=== PATIENT | female | born 1990 | race Caucasian/White ===

== ENCOUNTER 2020-01-12 06:36 | Inpatient (IN) | payer OTHER, SELFPAY ==
[2020-01-12] VITALS (126 sets, daily range): BP systolic 81–147; BP diastolic 32–121; PULSE 61–179; RESP 10; TEMP 36.9–38.2; O2SAT 94–100; BMI 34.0
[2020-01-12 07:23] LABS: Basophils Absolute Auto 0.1 K/mm3 (0.0-0.1); Basophils Percent Auto 0.6 % (0.2-1.2); Eosinophils Absolute Auto 0.3 K/mm3 (0-0.3); Eosinophils Percent Auto 2.3 % (0-4.4); Hematocrit 35.8 % (37.0-47.0); Hemoglobin 11.7 g/dL (12.0-15.0); Immature Granulocyte Absolute 0.14 K/mm3 (0.00-0.031); Immature Granulocyte Percent A 1.2 % (0-0.5); Lymphocytes Absolute Auto 2.91 K/mm3 (0.9-3.2); Lymphocytes Percent Auto 25.9 % (18.3-44.2); Mean Corpuscular HGB Conc 32.7 g/dl (32-36); Mean Corpuscular Hemoglobin 26.9 pg (26-34); Mean Corpuscular Volume 82.3 fl (80-100); Monocytes Absolute Auto 0.8 K/mm3 (0.1-0.6); Monocytes Percent Auto 6.8 % (2.6-8.5); Neutrophils Absolute Auto 7.1 K/mm3 (1.3-6.7); Neutrophils Percent Auto 63.2 % (45.5-73.1); Platelet Count Result 253 k/mm3 (150-375); Red Blood Count 4.35 M/mm3 (4.2-5.4); Red Cell Distribution Width 15.2 % (11.5-14.5); White Blood Count 11.2 K/mm3 (4.5-10.0)
[2020-01-12 07:33] LABS: Glucose Point of Care 101 (65-105)
--- NOTE | 2020-01-12 07:47 | LDADM ---
This patient, Josefa Witt, was admitted to Labor/Delivery/Recovery 104 on 01/12/20 at 06:36. Plans for labor, pain management and were discussed with patient. Patient/family oriented to hospital policies and general routines including ID bracelet, bed and alarms, visiting hours, pain management, procedures, bathroom and other care routines, personal items, smoking policy, room service/diet and guest tray routines, security routines, and visiting hours. Patient/Family are encouraged to report perceived risks to care and to ask questions if they do not understand what they are told or what they should do. See OBIX for further documentation.
[2020-01-12] MEDS: CALCIUM CARBONATE (TUMS) 500 MG (200 MG ELEMENTAL) 400 MG PO (08:16)
[2020-01-12] MEDS: LACTATED RINGERS 1,000 ML 125 ML IV CONT ×3 (08:17→18:37)
[2020-01-12] MEDS: OXYTOCIN 30 UNITS/NS 500 ML 30 UNITS/500 ML BAG IV CONT (08:18)
--- NOTE | 2020-01-12 08:49 | WPDOBADMIT ---
Obstetrics - Admit Note Admission Note: 29 y/o @ 39 weeks.GDM diet controlled. Elective induction for LGA. EFW 7-15 2 weeks ago. record reviewed. No pertinent additions to the history and/or any subsequent changes in the physical findings that are not consistent with the expected course of the were found. Additions to the history and/or subsequent changes in the physical findings follow. None.
[2020-01-12 11:56] LABS: Glucose Point of Care 74 (65-105)
--- NOTE | 2020-01-12 13:51 | WPDANESEPP ---
Anes - Eval Pre Procedure Procedure: labor epidural Date/Time: 01/12/20 13:51 Preop Diagnosis: labor pain Pre Op Diagnosis: IOL Patient Data Age: 29 Gender: F Height: 5 ft 2 in Weight: 84.5 kg Last Vital Signs Pulse 63 01/12/20 11:46 BP 124/81 01/12/20 11:46 Allergies Allergy/AdvReac Type Severity Reaction Status Date / Time No Known Allergies Allergy Unverified 04/24/17 15:20 Laboratory Tests 01/12/20 01/12/20 01/12/20 07:16 07:16 07:16 WBC 11.2 K/mm3 H K/mm3 (4.5-10.0) RBC 4.35 M/mm3 M/mm3 (4.2-5.4) Hgb 11.7 g/dL L g/dL (12.0-15.0) Hct 35.8 % L % (37.0-47.0) MCV 82.3 fl fl (80-100) MCH 26.9 pg pg (26-34) MCHC 32.7 g/dl g/dl (32-36) RDW 15.2 % H % (11.5-14.5) Plt Count 253 k/mm3 k/mm3 (150-375) MPV 11.0 fl H fl (7.4-10.4) Immature Gran % (Auto) 1.2 % H % (0-0.5) Neut % (Auto) 63.2 % % (45.5-73.1) Lymph % (Auto) 25.9 % % (18.3-44.2) [place] % (Auto) 6.8 % % (2.6-8.5) Eos % (Auto) 2.3 % % (0-4.4) Baso % (Auto) 0.6 % % (0.2-1.2) Lymph # (Auto) 2.91 K/mm3 K/mm3 (0.9-3.2) [place] # (Auto) 0.8 K/mm3 H K/mm3 (0.1-0.6) Eos # (Auto) 0.3 K/mm3 K/mm3 (0-0.3) Baso # (Auto) 0.1 K/mm3 K/mm3 (0.0-0.1) Abs Immat Gran (auto) 0.14 K/mm3 H K/mm3 (0.00-0.031) Absolute Neuts (auto) 7.1 K/mm3 H K/mm3 (1.3-6.7) Absolute Nucleated RBC 0.0 K/mm3 K/mm3 (0.0-0.012) Nucleated RBC % 0.0 % % (0.0-0.2) POC Capillary Glucose RPR Pending Blood Type O Positive Antibody Screen Negative 01/12/20 01/12/20 07:26 11:53 WBC RBC Hgb Hct MCV MCH MCHC RDW Plt Count MPV Immature Gran % (Auto) Neut % (Auto) Lymph % (Auto) [place] % (Auto) Eos % (Auto) Baso % (Auto) Lymph # (Auto) [place] # (Auto) Eos # (Auto) Baso # (Auto) Abs Immat Gran (auto) Absolute Neuts (auto) Absolute Nucleated RBC Nucleated RBC % POC Capillary Glucose 101 mg/dl mg/dl 74 mg/dl mg/dl (65-105) (65-105) RPR Blood Type Antibody Screen Patient hx anesthesia problems: none Family hx anesthesia problems: none [facility] Family History Family History (Updated 01/12/20 @ 07:48 by Evelyne Nails RN) Other Unknown family medical history Social History Social History Smoking status: Former smoker Tobacco type: cigarettes Second hand tobacco smoke exposure: No Substance use: former Spiritual care concerns: No Exam Day of Procedure 01/12/20 13:51
[2020-01-12 16:02] LABS: Glucose Point of Care 77 (65-105)
[2020-01-12 18:40] LABS: Glucose Point of Care 69 (65-105)
--- NOTE | 2020-01-12 19:12 | P.PNOB_ITS ---
OB - PN: Subj Subjective Date/time seen: 01/12/20 19:12 This patient is a 29-year-old multiparous female. She is term and has been induced today. She has moved slowly through the 1st stage of labor. She is known to have a larger baby. The baby's estimated weight was 7 lb 15 oz 2 weeks ago. She is of small body habitus. We had a lengthy discussion regarding the baby's estimated weight. Palpate her abdomen I estimated at 3800 g . There is significant amount of room in the vagina and pelvis on digital cervical exam. The head is very high. The cervix is almost completely dilated with a rim of cervix posteriorly around the back of the head. I do not suspect a malposition of the head. We discussed shoulder dystocia with the patient. In great detail and I discussed possibility of injury. Discussed brachial plexus injury and permanent paralysis with the patient. We agreed to continue to observe and expectant management her labor. More signs cephalopelvic disproportion will be recognized and make appropriate recommendations. OB - PN: Obj Data Labs CBC & Chem 7: 01/12/20 07:16 Labs: Laboratory Results - last 24 hr 01/12/20 01/12/20 01/12/20 07:16 07:16 07:26 WBC 11.2 H RBC 4.35 Hgb 11.7 L Hct 35.8 L MCV 82.3 MCH 26.9 MCHC 32.7 RDW 15.2 H Plt Count 253 MPV 11.0 H Immature Gran % (Auto) 1.2 H Neut % (Auto) 63.2 Lymph % (Auto) 25.9 [place] % (Auto) 6.8 Eos % (Auto) 2.3 Baso % (Auto) 0.6 Lymph # (Auto) 2.91 [place] # (Auto) 0.8 H Eos # (Auto) 0.3 Baso # (Auto) 0.1 Abs Immat Gran (auto) 0.14 H Absolute Neuts (auto) 7.1 H Absolute Nucleated RBC 0.0 Nucleated RBC % 0.0 POC Capillary Glucose 101 Blood Type O Positive Antibody Screen Negative 01/12/20 01/12/20 01/12/20 11:53 15:58 18:36 WBC RBC Hgb Hct MCV MCH MCHC RDW Plt Count MPV Immature Gran % (Auto) Neut % (Auto) Lymph % (Auto) [place] % (Auto) Eos % (Auto) Baso % (Auto) Lymph # (Auto) [place] # (Auto) Eos # (Auto) Baso # (Auto) Abs Immat Gran (auto) Absolute Neuts (auto) Absolute Nucleated RBC Nucleated RBC % POC Capillary Glucose 74 77 69 Blood Type Antibody Screen OB - PN A/P Time Spent With Patient Time: Total time spent is greater than 50% in coordination of care (as documented) at patient's floor/unit and/or counseling patient:
[2020-01-12 20:21] LABS: Glucose Point of Care 72 (65-105)
--- NOTE | 2020-01-12 22:32 | P.PNOB_ITS ---
OB - PN: Subj Subjective Date/time seen: 01/12/20 22:32This patient is a 29-year-old has labored for many hours. She became complete and began pushing and half ago. She has not been able to move the baby down. We have agreed to proceed with delivery for failure to descend. There is reassuring status. OB - PN: Obj Data Labs CBC & Chem 7: 01/12/20 07:16 Labs: Laboratory Results - last 24 hr 01/12/20 01/12/20 01/12/20 07:16 07:16 07:26 WBC 11.2 H RBC 4.35 Hgb 11.7 L Hct 35.8 L MCV 82.3 MCH 26.9 MCHC 32.7 RDW 15.2 H Plt Count 253 MPV 11.0 H Immature Gran % (Auto) 1.2 H Neut % (Auto) 63.2 Lymph % (Auto) 25.9 [place] % (Auto) 6.8 Eos % (Auto) 2.3 Baso % (Auto) 0.6 Lymph # (Auto) 2.91 [place] # (Auto) 0.8 H Eos # (Auto) 0.3 Baso # (Auto) 0.1 Abs Immat Gran (auto) 0.14 H Absolute Neuts (auto) 7.1 H Absolute Nucleated RBC 0.0 Nucleated RBC % 0.0 POC Capillary Glucose 101 Blood Type O Positive Antibody Screen Negative 01/12/20 01/12/20 01/12/20 11:53 15:58 18:36 WBC RBC Hgb Hct MCV MCH MCHC RDW Plt Count MPV Immature Gran % (Auto) Neut % (Auto) Lymph % (Auto) [place] % (Auto) Eos % (Auto) Baso % (Auto) Lymph # (Auto) [place] # (Auto) Eos # (Auto) Baso # (Auto) Abs Immat Gran (auto) Absolute Neuts (auto) Absolute Nucleated RBC Nucleated RBC % POC Capillary Glucose 74 77 69 Blood Type Antibody Screen 01/12/20 19:58 WBC RBC Hgb Hct MCV MCH MCHC RDW Plt Count MPV Immature Gran % (Auto) Neut % (Auto) Lymph % (Auto) [place] % (Auto) Eos % (Auto) Baso % (Auto) Lymph # (Auto) [place] # (Auto) Eos # (Auto) Baso # (Auto) Abs Immat Gran (auto) Absolute Neuts (auto) Absolute Nucleated RBC Nucleated RBC % POC Capillary Glucose 72 Blood Type Antibody Screen OB - PN A/P Time Spent With Patient Time: Total time spent is greater than 50% in coordination of care (as documented) at patient's floor/unit and/or counseling patient:
[2020-01-12] MEDS: ceFAZolin 2 GM/D5W 50 ML 2 GM/50 ML BAG IVPB (22:54)
--- NOTE | 2020-01-12 23:42 | PM.PROC ---
Procedure Note - Detailed Date of procedure: 01/12/20 Pre-op diagnosis: IOL Term gestation, Failure to descend Post-op diagnosis: same ( malposition of the head) Procedure performed: low-transverse delivery Description of procedure: The patient was taken the operating room. She was prepped and draped in the dorsal supine position with leftward tilt after induction of spinal anesthetic. When anesthesia was found to be adequate a low-transverse skin incision was made and carried down to the level the fascia with the knife. The fascial incision was made at the midline with a scalpel. The fascial incision was extended laterally with Gao scissors. The fascia was tented upward superior and inferior with Koffi clamps. The rectus muscles were dissected off bluntly. The rectus muscles at the midline. The preperitoneal fat was dissected bluntly at the superior aspect of the separate the rectus muscles. The peritoneal cavity was entered bluntly in the same area. The peritoneal incision was extended superior and inferior with good visualization of bladder. Bladder blade was inserted. A low-transverse incision was made on the uterus with the scalpel. It was carried down the level of the amniotic cavity with a knife. The amniotic cavity bluntly. The uterine incision was made laterally with blunt traction. The infant was delivered. The cord was clamped and cut. The infant was handed off to waiting pediatric staff. Cord bloods were obtained. The placenta was removed manually. The uterus was exteriorized. Uterus cleared of all clots and debris. Uterus closed in 0 Vicryl in a running locked fashion. An imbricating layer of 0 Vicryl was also placed on the to bolster the closure. The uterus was returned to the abdomen. The gutters were cleared of all clots and debris. The fascia was closed 0 Vicryl in a running fashion. Subcutaneous tissue was irrigated and bleeding areas were cauterized. The skin was closed with subcuticular absorbable yany. The incision was covered with derma aguirre. The patient tolerated the procedure well. She was taken recovery room stable condition. Sponge, lap, needle counts were correct x2. Anesthesia: spinal Surgeon: Tony Loya MD Estimated blood loss (mL): 750 Drains: No Packing: No Pathology: yes Complications: No immediate complications Condition: stable Disposition: floor Findings: Normal maternal anatomy. Average size infant with normal Apgars. No gross evidence of abruption.
[2020-01-12] MEDS: miSOPROStol 200 MCG TABLET 800 MCG RECTAL (23:57)
[2020-01-13] VITALS (38 sets, daily range): BP systolic 77–141; BP diastolic 28–80; PULSE 67–135; RESP 12–19; TEMP 36.6–37.7; O2SAT 92–100
[2020-01-13] MEDS: OXYTOCIN 30 UNITS/NS 500 ML 30 UNITS/500 ML BAG 125 UNITS IV CONT (00:10)
[2020-01-13] MEDS: KETOROLAC 30 MG/ML VIAL (*BKC) IV PUSH (02:14)
--- NOTE | 2020-01-13 02:19 | OBPPTRN ---
Patient transferred to post room #290 via stretcher. Support person present. Oriented to unit, room, information board, rooming in, admission packet and security measures. Patient verbalizes understanding.
[2020-01-13] MEDS: DEXTROSE 5%/0.45% SOD CHL 1,000 ML 125 ML IV CONT (04:33)
[2020-01-13 06:07] LABS: Basophils Absolute Auto 0.1 K/mm3 (0.0-0.1); Basophils Percent Auto 0.3 % (0.2-1.2); Eosinophils Percent Auto 0.1 % (0-4.4); Hematocrit 29.5 % (37.0-47.0); Hemoglobin 9.5 g/dL (12.0-15.0); Immature Granulocyte Absolute 0.09 K/mm3 (0.00-0.031); Immature Granulocyte Percent A 0.5 % (0-0.5); Lymphocytes Absolute Auto 1.89 K/mm3 (0.9-3.2); Lymphocytes Percent Auto 10.3 % (18.3-44.2); Mean Corpuscular HGB Conc 32.2 g/dl (32-36); Mean Corpuscular Hemoglobin 27.1 pg (26-34); Mean Platelet Volume 11.6 fl (7.4-10.4); Monocytes Absolute Auto 1.3 K/mm3 (0.1-0.6); Monocytes Percent Auto 7.1 % (2.6-8.5); Neutrophils Percent Auto 81.7 % (45.5-73.1); Platelet Count Result 233 k/mm3 (150-375); Red Blood Count 3.51 M/mm3 (4.2-5.4); Red Cell Distribution Width 15.5 % (11.5-14.5); White Blood Count 18.3 K/mm3 (4.5-10.0)
--- NOTE | 2020-01-13 08:10 | P.PNOB_ITS ---
OB - PN: Subj Subjective Date/time seen: 01/13/20 08:10 Patient comments: no complaints, pain well controlled, tolerating diet and flatus present OB - PN: Obj Data Labs CBC & Chem 7: 01/13/20 04:23 Labs: Laboratory Results - last 24 hr 01/12/20 01/12/20 01/12/20 07:16 11:53 15:58 WBC RBC Hgb Hct MCV MCH MCHC RDW Plt Count MPV Immature Gran % (Auto) Neut % (Auto) Lymph % (Auto) [place] % (Auto) Eos % (Auto) Baso % (Auto) Lymph # (Auto) [place] # (Auto) Eos # (Auto) Baso # (Auto) Abs Immat Gran (auto) Absolute Neuts (auto) Absolute Nucleated RBC Nucleated RBC % POC Capillary Glucose 74 77 Blood Type O Positive Antibody Screen Negative 01/12/20 01/12/20 01/13/20 18:36 19:58 04:23 WBC 18.3 H RBC 3.51 L Hgb 9.5 L Hct 29.5 L MCV 84.0 MCH 27.1 MCHC 32.2 RDW 15.5 H Plt Count 233 MPV 11.6 H Immature Gran % (Auto) 0.5 Neut % (Auto) 81.7 H Lymph % (Auto) 10.3 L [place] % (Auto) 7.1 Eos % (Auto) 0.1 Baso % (Auto) 0.3 Lymph # (Auto) 1.89 [place] # (Auto) 1.3 H Eos # (Auto) 0.0 Baso # (Auto) 0.1 Abs Immat Gran (auto) 0.09 H Absolute Neuts (auto) 15.0 H Absolute Nucleated RBC 0.0 Nucleated RBC % 0.0 POC Capillary Glucose 69 72 Blood Type Antibody Screen OB - PN A/P Plan day: 1 Comments: Post Op LTCS - no problems, routine recovery Time Spent With Patient Time: Total time spent is greater than 50% in coordination of care (as documented) at patient's floor/unit and/or counseling patient: Exam Const: General: cooperative, healthy appearing, comfortable and no acute distress Resp: Auscultation: no crackles, no rales, no rhonchi and no wheezes Cardio: Rhythm: regular rhythm Heart sounds: no click and no murmurs GI: Inspection: non-distended Auscultation: normal bowel sounds Extrem: General: normal to inspection, no pedal edema and no calf tenderness
[2020-01-13] MEDS: DOCUSATE SODIUM 100 MG CAPSULE PO ×2 (09:29→19:02)
[2020-01-13] MEDS: LORATADINE 10 MG TABLET PO (09:29)
--- NOTE | 2020-01-13 10:35 | PC.NURSE ---
Consulted with patient, mother is attempting to breast. Mother reports has used the nipple shield during the night. had difficulties latching and maintaining latch. Infant has been supplemented due to low blood glucose. Discussed initiating pumping to stimulate milk supply with shield use. Discussed nipple shield precautions and possible complications. Instructions given on application and cleaning of shield. Patient able to return demonstration on proper application of shield. Discussed the need for regular pumping if infant continues to nurse with the shield. Patient verbalizes understanding. Reviewed feeding cues, frequencies, duration of feedings, feeding elimination flow sheet, and signs of adequate intake. Demonstrated stimulation techniques to wake for feeding. Assisted with to breast without nipple shield. Reviewed positioning/alignment in cross cradle, holding breast in U hold and guided asymmetrical latch on. was able to latch correctly. Infant nursed eagerly with good bursts of rhythmic draws and occasional swallowing noted. Reviewed signs of a correct latch, effective nursing and suck swallow ratio. Infant was able to maintain latch without discomfort to mother. Nipple care reviewed. Suggested mother stimulate while feeding to keep infant awake and nursing effectively for increased intake and to assist with maintaining deep latch. Demonstrated how to adjust latch more deeply while feeding. Instructed mother to call out for RN assistance if she is unable to latch infant for feeding or she has discomfort with nursing. Instructed feeding should be initiated three hours from start of last feeding or if feeding cues are noted before. Mother voiced understanding of information shared.
--- NOTE | 2020-01-13 10:47 | WPDANLDPN2 ---
Anes-Prog Note L&D Date/Time: 01/13/20 10:47 Comfortable throughout: section Neuraxial method: spinal Epidural/Spinal procedure site: clean & non-tender Neuro status: Neuro function grossly intact. Cardiovascular status: normal Respiratory status: normal Airway patency: baseline Mental status: baseline Post-Op hydration status: normal Vital Signs: Last Vital Signs Temp 36.9 C 01/13/20 06:45 Pulse 91 01/13/20 06:45 Resp 16 01/13/20 06:45 BP 95/54 L 01/13/20 06:45 Pulse Ox 97 01/13/20 06:45 Pain score (VAS): 05/07 I/O: Intake & Output 01/12/20 01/13/20 01/13/20 23:59 07:59 15:59 Intake Total 2000 500 Output Total 735 650 Balance 1265 -150 Post-procedural complaints: none Patient feedback: Patient satisfied with anesthetic care.
--- NOTE | 2020-01-13 10:47 | WPDANLDNPN2 ---
Anes-Prog Note L&D-Neuraxial Date/Time: 01/13/20 10:47 Neuraxial medications: intrathecal PF morphine Opiod-related complaints: none Patient feedback: Patient satisfied with post-operative pain management.
[2020-01-13 11:14] LABS: Rapid Plasma Reagin Non-Reactive (NonReactive)
[2020-01-13] MEDS: POLYSACCHARIDE IRON COMPLEX 150 MG CAPSULE PO (14:45)
[2020-01-13] MEDS: MULTIVIT/MIN/PREN/FOL AC/IRON TABLET 1 TAB PO (14:45)
[2020-01-13] MEDS: HYDROcodone/acetaminophen (*CRX) 5-325 MG TABLET 1 TAB PO ×2 (14:46→23:51)
[2020-01-13] MEDS: IBUPROFEN 600 MG TABLET PO ×2 (14:46→23:52)
--- NOTE | 2020-01-13 15:50 | PC.NURSE ---
Breast pump provided due to nipple shield use. Instructions given on breast pump care and usage, pumping schedule, nipple care, and collection and storage of breast milk. Encouraged [id number], breast massage and manual expression to stimulate supply. Assessed patient for correct flange size, placement and draw. Patient verbalizes and demonstrates understanding of instructions.
[2020-01-14] MEDS: POLYSACCHARIDE IRON COMPLEX 150 MG CAPSULE PO ×2 (07:15→15:04)
[2020-01-14] MEDS: DOCUSATE SODIUM 100 MG CAPSULE PO ×2 (07:15→15:04)
[2020-01-14] MEDS: HYDROcodone/acetaminophen (*CRX) 5-325 MG TABLET 1 TAB PO ×3 (07:15→22:31)
[2020-01-14] MEDS: MULTIVIT/MIN/PREN/FOL AC/IRON TABLET 1 TAB PO (07:15)
[2020-01-14] MEDS: IBUPROFEN 600 MG TABLET PO ×3 (07:16→22:32)
--- NOTE | 2020-01-14 08:12 | PM.OBPNVD ---
OB - PN: Subj Subjective Date/time seen: 01/14/20 08:12 Patient comments: no complaints, pain well controlled, incisional pain, tolerating diet and flatus present OB - PN: Obj Data Labs CBC & Chem 7: 01/13/20 04:23 Labs: Laboratory Results - last 24 hr 01/12/20 07:16 RPR Non-reactive OB - PN A/P Plan day: 2 Plan: routine care Comments: POD#2 LTCS - no problems, to d/c Time Spent With Patient Time: Total time spent is greater than 50% in coordination of care (as documented) at patient's floor/unit and/or counseling patient: Exam Const: General: comfortable, no acute distress and alert Resp: Effort & Inspection: normal respiratory effort Auscultation: no crackles, no rales and no rhonchi Cardio: Rate: regular rate Heart sounds: no click, no murmurs and no rubs GI: Inspection: non-distended GI Palp: No Tenderness to palpation present (GI) Auscultation: normal bowel sounds Other: Incision - CDI Extrem: General: normal to inspection, no pedal edema and no calf tenderness
--- NOTE | 2020-01-14 08:14 | PM.OBDSVD ---
DS: Admitting Diagnosis Admitting Diagnosis Admitting Diagnosis: IOL DS: Discharge Diagnosis Discharge Diagnosis (1) delivery delivered: Code(s): O82 - Encounter for delivery without indication Status: Acute OB - DS: Summary OB Procedures : None OB Procedures Intrapartum: OB Procedures: : None Peripartum Data Delivery Method: Section Procedures: Procedures Operation Date: 01/12/20 23:00 Actual Procedures Side Surgeon p Section Not Applicable Tony Loya MD Status at Discharge Functional status at discharge: independent ambulation Time Spent with Patient Time attestation: Total time spent providing and/or coordinating discharge services: DS: Data Data Completed and Pending Pending studies at discharge: Pending at discharge 01/13/20 00:27 Surgical [PTH] Routine Labs on day of discharge: Labs from last 24 hours 01/12/20 07:16 RPR Non-reactive Discharge Plan Discharge Discharging Clinician: Tony Loya Patient Disposition: Home, Self-Care Activity: pelvic rest Diet: regular Patient Instructions: Antibiotic Form Stand Alone Forms: General Discharge Information Follow-up/Referrals: Tony Loya MD [Physician] - Discharge Medications: New hydrocodone-acetaminophen 5-325 mg tablet 1 - 2 tablet PO Q4H PRN (Reason: pain) Qty: 25 RF: 0 Date of admission: 01/12/20 06:36 Primary Care Provider: Sunil Fuller Admitting Provider: Tony Loya Attending physician on admission: Tony Loya
[2020-01-14 08:30] VITALS: BP 102/68; PULSE 80; RESP 16; TEMP 36.8; O2SAT 98
--- NOTE | 2020-01-14 11:00 | PC.NURSE ---
Consult with pt., mother reports infant blood glucose has been WNL and BS are not longer needed. Mother has been bottle feeding only and states infant is now fussy with latching and does not want to maintain latch. Discussed feeding status, reviewed infant is now accustom to large amounts per feeding with an instant flow by the bottle. Suggested mother offer a few mls of the bottle then transition infant to breast for feeding, giving additional bottle throughout the feeding as needed. Then supplement when infant is done at the breast. Mother can breast and bottle feed during the feeding until infant is satisfied. Reviewed may want supplementation until her milk is in to the level is used to. depending on the volume infant is taking per feeding infant may want to feed every 4 hours. Advised to pace bottle and to stop once infant is satisfied. Reviewed infant feeding cues, frequencies, duration of feedings, feeding elimination flow sheet, and signs of adequate intake. Mother is feeding as required and waking to feed if needed. is currently meeting outcomes for weight, output, jaundice and feeding frequencies. Reviewed transition to breast milk, signs of adequate intake, and engorgement/relief. Instructed to call ICP if intake/output less than required. Reviewed regular medications mother is taking. Information provided per Josette. Reviewed community resources on the [facility] website and in the Mom/Baby guide. Information on outpatient services provided. Mother has no further questions at this time. Requested mother call out next feeding for assist with feeding.
[2020-01-14] MEDS: HYDROcodone/acetaminophen (*CRX) 10-325 MG TABLET 1 TAB PO ×2 (11:13→19:01)
[2020-01-14 19:00] VITALS: BP 101/57; PULSE 67; RESP 16; TEMP 36.3; O2SAT 99
[2020-01-15] MEDS: IBUPROFEN 600 MG TABLET PO ×3 (05:59→22:36)
[2020-01-15] MEDS: HYDROcodone/acetaminophen (*CRX) 10-325 MG TABLET 1 TAB PO ×4 (05:59→22:37)
--- NOTE | 2020-01-15 08:30 | PC.NURSE ---
PT introductions made and plan of care discussed per post op csection, pain management, breast feeding. daily care activities. PT extremely agitated and tearful due to the inability of to be discharged. PT verbalized being very upset. PT encouraged to talk and have any questions answered. Offered for pt to be d/c and in a no care position so as to get out and walk and or visit her family. PT declined to be d/c to no care position.
[2020-01-15 09:30] VITALS: BP 103/57; PULSE 82; RESP 20; TEMP 36.4; O2SAT 100
--- NOTE | 2020-01-15 09:38 | P.PNOB_ITS ---
OB - PN: Subj Subjective Date/time seen: 01/15/20 09:38 Patient comments: no complaints, pain well controlled, tolerating diet, flatus present and other (Lochia less than menses. Ambulating and voiding without problems) [place] baby status: doing well OB - PN: Obj Data Labs CBC & Chem 7: 01/13/20 04:23 OB - PN A/P Plan day: 3 (s/p section, doing well and ready to be discharged home) Plan: routine care and other Comments: [employer] is not releasing her baby today, awaiting blood culture done this morning due to increased respiratory rate. Plan discharge tomorrow Time Spent With Patient Time: Total time spent is greater than 50% in coordination of care (as documented) at patient's floor/unit and/or counseling patient: Time with patient: less than 15 minutes Exam Const: General: no acute distress Resp: Auscultation: clear to auscultation bilaterally Cardio: Rate: regular rate Rhythm: regular rhythm GI: Inspection: non-distended, incision (Intact without erythema, drainage, or induration) and other (Fundus firm and nontender below umbilicus) GI Palp: Yes abdominal tenderness (appropriate) and Yes Soft to palpation Extrem: General: no edema
[2020-01-15] MEDS: SIMETHICONE 80 MG TAB.CHEW PO ×2 (09:40→15:46)
[2020-01-15] MEDS: DOCUSATE SODIUM 100 MG CAPSULE PO ×2 (09:40→15:47)
[2020-01-15] MEDS: POLYSACCHARIDE IRON COMPLEX 150 MG CAPSULE PO ×2 (09:41→15:47)
[2020-01-15] MEDS: MULTIVIT/MIN/PREN/FOL AC/IRON TABLET 1 TAB PO (09:41)
[2020-01-15] MEDS: HYDROcodone/acetaminophen (*CRX) 5-325 MG TABLET 1 TAB PO (15:46)
--- NOTE | 2020-01-15 18:23 | PC.NURSE ---
Patient viewed the discharge video Mother & Baby Care, The First Two Weeks . Patient was given the opportunity and encouraged to ask questions. Patient verbalized understanding of information shared and has been given the mother/baby guide for home reference.
[2020-01-15 20:35] VITALS: BP 110/66; PULSE 85; RESP 13; TEMP 36.7; O2SAT 98
[2020-01-16] MEDS: HYDROcodone/acetaminophen (*CRX) 10-325 MG TABLET 1 TAB PO ×2 (04:17→08:58)
[2020-01-16] MEDS: IBUPROFEN 600 MG TABLET PO (04:17)
--- NOTE | 2020-01-16 07:15 | PC.NURSE ---
PT introductions made and plan of care discussed per post op csection, pain management, breast feeding, daily care activities and pending discharge to home. PT verbalized understanding of such care.
[2020-01-16 08:56] VITALS: BP 114/72; PULSE 82; RESP 16; TEMP 36.6; O2SAT 98
[2020-01-16] MEDS: DOCUSATE SODIUM 100 MG CAPSULE PO (08:56)
[2020-01-16] MEDS: SIMETHICONE 80 MG TAB.CHEW PO (08:56)
[2020-01-16] MEDS: POLYSACCHARIDE IRON COMPLEX 150 MG CAPSULE PO (08:57)
[2020-01-16] MEDS: MULTIVIT/MIN/PREN/FOL AC/IRON TABLET 1 TAB PO (08:57)
--- NOTE | 2020-01-16 09:00 | PC.NURSE ---
PT receive discharge instructions per protocol and verbalized understanding of such instructions.
--- NOTE | 2020-01-16 09:32 | PM.OBPNVD ---
OB - PN: Subj Subjective Date/time seen: 01/16/20 09:32 Patient comments: no complaints, pain well controlled, tolerating diet, flatus present and other (Lochia less than menses. Ambulating and voiding without problems) baby status: doing well OB - PN: Obj Data Labs CBC & Chem 7: 01/13/20 04:23 OB - PN A/P Plan day: 4 (s/p section, doing well and ready to be discharged home) Plan: routine care, discharge home and other (Follow up in office in 1 week) Time Spent With Patient Time: Total time spent is greater than 50% in coordination of care (as documented) at patient's floor/unit and/or counseling patient: Time with patient: less than 15 minutes Exam Const: General: no acute distress Resp: Auscultation: clear to auscultation bilaterally Cardio: Rate: regular rate Rhythm: regular rhythm GI: Inspection: non-distended, incision (Intact without erythema, drainage, or induration) and other (Fundus firm and nontender below umbilicus) GI Palp: Yes abdominal tenderness (appropriate) and Yes Soft to palpation Extrem: General: no edema
--- NOTE | 2020-01-16 09:38 | PC.NURSE ---
PT discharged to home ambulatory accompanied by spouse and and taken to waiting car. Follow up appts confirmed
[2020-01-18 11:53] VITALS: BP 118/73; PULSE 73; RESP 16; TEMP 37.2; O2SAT 98
--- NOTE | 2020-02-13 20:46 | PM.IMHP ---
H&P: HPI History of Present Illness Date/Time: 02/13/20 20:46 Chief complaint: IOL Narrative: Josefa Witt is a 29 year old female This patient is a 29-year-old has labored for many hours. She became complete and began pushing and half ago. She has not been able to move the baby down. We have agreed to proceed with delivery for failure to descend. There is reassuring status. Review of Systems Constitutional: Constitutional: Reports no additional constitutional complaints, Denies fatigue, Denies headache(s), Denies lethargy and Denies weakness Eyes: Eyes: Reports no additional eye complaints, Denies blurry vision and Denies photophobia ENT: Reports as per HPI, Denies headache(s) and Denies neck pain Cardiovascular: Cardiovascular: Denies chest pain, Denies diaphoresis, Denies leg edema, Denies palpitations and Denies dyspnea Respiratory: Respiratory: Denies hemoptysis, Denies dyspnea and Denies wheezing Gastrointestinal: Gastrointestinal: Denies abdominal pain, Denies melena, Denies bloating, Denies hematochezia, Denies nausea and Denies vomiting Genitourinary: Genitourinary: Reports no additional female genitourinary complaints Musculoskeletal: Musculoskeletal: Denies joint swelling, Denies neck pain, Denies numbness and Denies stiffness Neurologic: Denies Abnormal speech present, Denies confusion, Denies headache(s), Denies numbness and Denies weakness Psychiatric: Psychiatric: Denies anxiety, Denies confusion, Denies depression, Denies homicidal ideation and Denies suicidal ideation Endocrine: Endocrine: Denies fatigue and Denies palpitations Allergic/Immunologic: Allergic/Immunologic: Denies wheezing [facility] Family History Family History (Updated 01/12/20 @ 07:48 by Evelyne Nails RN) Other Unknown family medical history Social History Social History Smoking status: Former smoker Tobacco type: cigarettes Second hand tobacco smoke exposure: No Substance use: former Spiritual care concerns: No Meds Home Medications and Allergies Home Medications Medication Instructions Recorded Confirmed Type hydrocodone-acetaminophen 1 - 2 tablet PO Q4H PRN #25 tablet 01/14/20 Rx Allergies Allergy/AdvReac Type Severity Reaction Status Date / Time No Known Allergies Allergy Unverified 04/24/17 15:20 Exam Const: General: healthy appearing, comfortable and no acute distress; No confusion Orientation/consciousness: No confusion Eyes: Direct Ophthalmoscopy: No photophobia Resp: Auscultation: clear to auscultation bilaterally, no rales, no rhonchi and no wheezes Cardio: Rate: regular rate Heart sounds: no click, no murmurs and no rubs GI: Inspection: non-distended GI Palp: No abdominal tenderness Auscultation: normal bowel sounds Neuro: General: No confusion Speech: No Abnormal speech present Extrem: General: normal to inspection, no pedal edema and no calf tenderness Assessment and Plan Assessment and plan (1) Failure of descent in labor, delivered, current hospitalization: Code(s): O62.2 - Other uterine inertia Status: Acute Assessment and Plan: This patient is a 29-year-old has labored for many hours. She became complete and began pushing and half ago. She has not been able to move the baby down. We have agreed to proceed with delivery for failure to descend. There is reassuring status.
--- NOTE | 2020-03-06 21:19 | PM.OBDSVD ---
DS: Admitting Diagnosis Admitting Diagnosis Admitting Diagnosis: IOL DS: Discharge Diagnosis Discharge Diagnosis (1) delivery delivered: Code(s): O82 - Encounter for delivery without indication Status: Acute OB - DS: Summary OB Procedures : None OB Procedures Intrapartum: OB Procedures: : None Peripartum Data Procedures: Procedures Operation Date: 01/12/20 23:00 Actual Procedures Side Surgeon p Section Not Applicable Tony Loya MD Time Spent with Patient Time attestation: Total time spent providing and/or coordinating discharge services: DS: Data Data Completed and Pending Completed studies during hospitalization: Pending at discharge 01/13/20 00:27 Surgical [PTH] Routine Discharge Plan Discharge Consulting providers: Aleshia Krueger Discharging Clinician: Tony Loya Patient Disposition: Home, Self-Care Activity: pelvic rest Diet: regular Discharge Instructions: Education: Mom and Baby Guide Given to: Mother Follow-Up: Call your delivering provider's office for an appointment to be seen in: 1 Week Mom and baby should come to the [facility] for the follow-up appointment. Appointment Date/Time: January 18, 2020 at 11:00 am What to expect at your follow-up visit: Blood Pressure Check Call [phone] if you are unable to keep your appointment time. BREAST CARE: * Wear a snug supportive bra. * For engorgement discomfort: Breast Feeding: * Apply warm moist washcloths * Express milk as needed to relieve engorgement * Wear loose clothing Bottle Feeding: * May apply ice packs * For sore nipples: * Identify correct latch-on * Apply warm moist washcloths before and after nursing * Air dry nipples after nursing * May apply Lansinoh cream to nipples ABDOMINAL INCISION: (if applicable) * Allow incision to air dry * Do NOT use lotions for powders on your incision * When showering, allow soap and water to run over the incision, but do not wash incision PERINEAL CARE: * Until bleeding stops, use your uma bottle after urinating * Change your pad frequently throughout the day * You may take sitz baths several times a day (fill your bathtub with warm water and soak for 20 minutes.) Do NOT bathe in the water * No tub baths until seen by your physician - You may shower ACTIVITY: * Rest as much as possible. * Do not exercise or lift anything heavier than your baby (such as laundry or other children.) * Avoid stairs or driving as much as possible. * Do not put anything into the vagina. No douching, tampons, or sexual activity until seen by physician. NOTIFY PHYSICIAN IF YOU HAVE ANY QUESTIONS OR IF ANY OF THE FOLLOWING SYMPTOMS OCCUR: * If your incision becomes red, swollen, or more painful than what you have experienced in the hospital. * If your vaginal bleeding becomes foul smelling. * If your vaginal bleeding becomes more heavy than a period or if your bleeding changes from pink to bright red. However, you may pass an occasional walnut-sized clot once or twice for the first week . * If you experience a sharp, shooting pain in you calves. * If you discover a hard, reddened area on your breast or if you experience flu-like symptoms. * If you have a fever of 100.4 or greater DIET: * Eat regular, well-balanced meals. * Drink plenty of fluids daily. If , drink to thirst. Patient Instructions: Antibiotic Form Stand Alone Forms: General Discharge Information Follow-up/Referrals: Tony Loya MD [Physician] - Discharge Medications: New hydrocodone-acetaminophen 5-325 mg tablet 1 - 2 tablet PO Q4H PRN (Reason: pain) Qty: 25 RF: 0 Date of admission: 01/12/20 06:36 Primary Care Provider: Sunil Fuller Admitting Provider: Tony Loya [facility]
== END 2020-01-16 09:38 | disposition home or self-care (01) | DRG 788 ==
LOC: ANHLDR 06:49 → ANHOB2 01-13 02:21
PROVIDERS: Advanced Practice Midwife; Admitting Provider Obstetrics & Gynecology; PCP Emergency Medicine; Visit Provider Obstetrics & Gynecology
PROC: 10D00Z1 Extraction of Products of Conception, Low, Open Approach (ICD-10-PCS; CPT 59514; principal; 2020-01-12 23:00)
DX: O75.2 Pyrexia during labor, not elsewhere classified (principal); O24.420 Gestational diabetes mellitus in childbirth, diet controlled; O62.0 Primary inadequate contractions; O99.334 Smoking (tobacco) complicating childbirth; O32.4XX0 Maternal care for high head at term, not applicable or unspecified; O32.8XX0 Maternal care for other malpresentation of fetus, not applicable or unspecified; Z37.0 Single live birth; Z3A.39 39 weeks gestation of pregnancy; F17.210 Nicotine dependence, cigarettes, uncomplicated
CPT/HCPCS: 36415; 85025; 86592; 86850; 86900; 86901; 88307; A9270; J0690; J1885; J2274; J2590; J2795; J3010; J7120